=== PATIENT | female | born 1955 | race Caucasian/White ===

== ENCOUNTER 2023-08-17 09:07 | Outpatient (AMB) | payer MEDICARE, OTHER, SELFPAY ==
--- NOTE | 2023-08-17 09:17 | MHC.OFFWIV ---
Intake Vital Signs 08/17/23 09:18 Height 5 ft 7 in Weight 180 lb 4 oz BMI 28.2 BP 120/70 Blood Pressure Location Rt brachial Position Sitting Pulse 70 Pulse Source Pulse Oximeter Pulse Oximetry (%) 100 Oxygen Delivery Method Room Air Intake Visit Reasons: EP LFT Knee pain/swollen fell last week Intake Note: Patient here because 1 week ago she fell on her left knee, it has become difficult to bend knee and is very painful. Patient Tobacco Use Status: Former Tobacco user Accompanied by: Self / Same As Patient Allergies No Known Allergies [No Known Allergies*] Allergy (Unverified 08/17/23 09:19) Do you need a note to return to daycare/school/sports/work: No HPI HPI Comments History of Present Illness Details She presents to office with knee pain she tripped on 2 steps into garage steps Landed right onto L knee No HT or LOC L knee pain since. No hx of surgery to knee Bending make worse Has been icing and tylenol arthritis (baseline) Bending 01/31. At rest 10/01 Sees ortho at [facility] Social History Patient Tobacco Use Status: Former Tobacco user Review of Systems Const Denies headache(s) ENT Denies vertigo, Denies dizziness and Denies headache(s) Resp Denies cough Musc Denies back pain, Reports arthralgias, Reports joint swelling, Denies numbness and Denies tingling Skin/Breast Reports change in pigmentation (bruise L knee) Neuro Denies vertigo, Denies dizziness, Denies headache(s), Denies focal weakness, Denies numbness and Denies tingling Physical Exam Vital Signs: Last Vital Signs Pulse 70 08/17/23 09:18 BP 120/70 08/17/23 09:18 Pulse Ox 100 08/17/23 09:18 Oxygen Delivery Method Room Air 08/17/23 09:18 BMI result Body Mass Index 28.2 General: Non-toxic, NAD. Speaking full sentences. Skin: Warm dry throughout. + yellow/green bruise on L knee overlyin gpatella and medial joint compartment. 2 scabb healed abrasions without bleeding, fb or discharge Eye: EOMI Respiratory: No respiratory distress Cardiac: No LLE calf tenderness or pedal edema MSK: No bony tenderness to L femur, L ankle. + tendrness to palpation medial aspect L patella, medial aspect tibial plateau and medial joint line. + full ROM L knee. Neurology: A/O. No aphasia or facial droop. Gait without abnormality Psych: Good mood and affect Assessment & Plan Assessment & Plan (1) Left knee pain: Code(s): M25.562 - Pain in left knee Qualifiers: Chronicity: acute Qualified Code(s): M25.562 - Pain in left knee Plan: Patient seen and evaluated. Xray L knee; I viewed as negative acute fx Discussed ice, and follow up with ortho Patient gave verbal understanding and had no additional questions or concerns at time of discharge All questions answered Orders: Referrals Orthopedics Referral M25.562 - Pain in left knee Coding Level of Care Code Est Pt Level 3 (91548) Diagnoses Acute pain of left knee M25.562 Chronicity: acute
[2023-08-17 09:18] VITALS: BP 120/70; PULSE 70; O2SAT 100; BMI 28.2
== END 2023-08-17 11:16 | disposition home or self-care (01) ==
PROVIDERS: PCP Family Medicine; Visit Provider Physician Assistant
DX: M25.562 Pain in left knee (principal)
CPT/HCPCS: 99213

== ENCOUNTER 2023-08-17 09:26 | Outpatient (REF) | payer MEDICARE, OTHER, SELFPAY ==
--- NOTE | ~2023-08-17 | XR_ITS ---
EXAMINATION: XR KNEE, LEFT CLINICAL INFORMATION: Left knee pain status post fall COMPARISON: None available. TECHNIQUE: Four views of the left knee. FINDINGS: No acute visible fracture or dislocation. Multi joint arthritic changes. Ossific focus along the medial femoral condyle may reflect a Virgil-Stieda lesion. Narrowing of the medial femorotibial compartment. Joint space alignment are otherwise maintained. No large knee joint effusion. Soft tissues are unremarkable. XR/XR knee LT 4V IMPRESSION: 1. No acute visible fracture or dislocation. 2. Multi joint arthritic changes. 3. Ossific focus along the medial femoral condyle may reflect a Virgil-Stieda lesion.
== END 2023-08-17 09:27 | disposition home or self-care (01) ==
LOC: HO.HMGCX 09:26
PROVIDERS: PCP Nurse Practitioner Family; Visit Provider Physician Assistant
DX: M25.562 Pain in left knee (principal)
CPT/HCPCS: 73564